=== PATIENT | female | born 1955 | race African-American/Black ===

== ENCOUNTER 2018-06-11 13:09 | Inpatient (IN) | payer MEDICAID, OTHER ==
[~2018-06-11] VITALS: Ht 165.1 cm; Wt 108.0 kg
[2018-06-11] MEDS ORDERED: ENALAPRIL 2.5MG/2ML VIAL 2ML IV ONE (15:15)
[2018-06-11 15:43] LABS: BASOPHILS % 1.1 % (0.0-2.0); EOSINOPHILS % 0.6 % (0.0-5.0); HEMATOCRIT. 41.3 % (36.0-48.0); HEMOGLOBIN. 13.9 g/dL (12.0-16.0); LYMPHOCYTES % 18.9 % (20.0-50.0); MEAN CORPUSCULAR HEMOGLOBIN 29.4 pg (28.0-32.0); MEAN CORPUSCULAR VOLUME 87.2 fL (81.0-99.0); MEAN PLATELET VOLUME 9.3 fl (7.4-10.4); MONOCYTES % 4.5 % (2.0-8.0); NEUTROPHILS % 74.9 % (40.0-76.0); PLATELET 272 x1000/uL (130-400); RED BLOOD CELL COUNT 4.74 mill/uL (4.2-5.4); RED CELL DISTRIBUTION WIDTH 13.5 % (11.6-14.6)
[2018-06-11 15:48] LABS: CHLORIDE 108 mEq/L (98-107)
[2018-06-11 15:50] LABS: INR 1.1; PARTIAL THROMBOPLASTIN TIME 27.5 sec (23.4-31.0); PROTHROMBIN TIME 10.6 sec (9.1-11.1)
[2018-06-11] MEDS ORDERED: MECLIZINE 25MG TABLET PO ONE (16:15)
[2018-06-11] MEDS ORDERED: IPRATROPIUM/ALBUTEROL 0.5-3(2.5)MG/3ML NEB INH PRN (18:30)
[2018-06-11] MEDS ORDERED: HYDROCODONE/ACETAMINOPHEN 10/325MG TABLET PO PRN (18:30)
[2018-06-11] MEDS ORDERED: NA PHOS,M-B/NA PHOS,DI-BA ENEMA 118ML PR PRN (18:30)
[2018-06-11] MEDS ORDERED: LORAZEPAM 2MG/ML CPJ IV PRN (18:30)
[2018-06-11] MEDS ORDERED: DIPHENHYDRAMINE 50MG/ML VIAL IV PRN (18:30)
[2018-06-11] MEDS ORDERED: DOCUSATE SODIUM 100MG CAPSULE PO PRN (18:30)
[2018-06-11] MEDS ORDERED: MAGNESIUM/ALUMINUM HYDROXIDE/SIMETHICONE 30ML UDC PO PRN (18:30)
[2018-06-11] MEDS ORDERED: HYDRALAZINE 20MG/ML VIAL IV PRN (18:30)
[2018-06-11] MEDS ORDERED: ACETAMINOPHEN 325MG TABLET PO PRN (18:30)
[2018-06-11] MEDS ORDERED: CLONIDINE 0.1MG TABLET PO PRN (18:30)
[2018-06-11] MEDS ORDERED: ONDANSETRON HCL 4MG/2ML INJ IV PRN (18:30)
[2018-06-11 21:45] VITALS: BP 146/71
[2018-06-11 22:03] VITALS: BP 146/71
[2018-06-11] MEDS ORDERED: BECL8.7H NS (22:40)
[2018-06-11] MEDS ORDERED: METO-385 PO (22:40)
[2018-06-11] MEDS: HYDROMORPHONE HCL/PF 2MG/ML CPJ IV PRN (22:52)
[2018-06-11] MEDS: SODIUM CHLORIDE 0.9% INJ 3ML FLUSH IVF SCH (22:52)
[2018-06-11] MEDS: ENOXAPARIN 30MG/0.3ML SYR SUBCUT SCH (22:53)
[2018-06-11] MEDS: GUAIFENESIN 200MG/10ML SUGAR FREE UDC PO PRN (23:04)
[2018-06-12] VITALS: BP_SYST 144; BP_SYST 151; BP_SYST 163; BP_DIAS 75; BP_DIAS 82; BP_DIAS 84
[2018-06-12 00:36] LABS: CREATINE KINASE 64 IU/L (26-192)
[2018-06-12 00:37] LABS: CREATINE KINASE MB FRACTION 1.1 ng/mL (0.5-3.6)
[2018-06-12 04:00] VITALS: BP 151/84
[2018-06-12] MEDS: HYDROMORPHONE HCL/PF 2MG/ML CPJ IV PRN ×3 (04:04→19:30)
[2018-06-12 04:32] LABS: METHADONE URINE SCREEN NEGATIVE (NEGATIVE)
[2018-06-12 04:33] LABS: *AMPHETAMINES SCREEN URINE NEGATIVE (NEGATIVE); *BARBITURATES SCREEN URINE NEGATIVE (NEGATIVE); *BENZODIAZEPINES SCREEN URINE NEGATIVE (NEGATIVE); *COCAINE SCREEN URINE NEGATIVE (NEGATIVE); CANNABINOID URINE SCREEN PRESUMTIVE POSITIVE (NEGATIVE); OPIATES URINE SCREEN PRESUMTIVE POSITIVE (NEGATIVE); PHENCYCLIDINE URINE SCREEN NEGATIVE (NEGATIVE)
[2018-06-12] MEDS: SODIUM CHLORIDE 0.9% INJ 3ML FLUSH IVF SCH ×3 (07:06→20:36)
[2018-06-12 08:00] VITALS: BP 147/76
[2018-06-12] MEDS: ASPIRIN 81MG EC TABLET PO SCH (09:40)
[2018-06-12] MEDS: ENOXAPARIN 30MG/0.3ML SYR SUBCUT SCH (09:40)
[2018-06-12] MEDS: GUAIFENESIN 200MG/10ML SUGAR FREE UDC PO PRN ×2 (09:41→19:29)
[2018-06-12 09:46] LABS: BASOPHILS % 1.2 % (0.0-2.0); EOSINOPHILS % 1.7 % (0.0-5.0); HEMATOCRIT. 38.5 % (36.0-48.0); HEMOGLOBIN. 12.8 g/dL (12.0-16.0); MEAN CORPUSCULAR HEMOGLOBIN 28.9 pg (28.0-32.0); MEAN PLATELET VOLUME 9.4 fl (7.4-10.4); MONOCYTES % 6.6 % (2.0-8.0); NEUTROPHILS % 58.5 % (40.0-76.0); PLATELET 244 x1000/uL (130-400); RED BLOOD CELL COUNT 4.42 mill/uL (4.2-5.4); RED CELL DISTRIBUTION WIDTH 13.8 % (11.6-14.6)
[2018-06-12 10:03] LABS: CHLORIDE 108 mEq/L (98-107)
[2018-06-12 10:16] LABS: CREATINE KINASE 64 IU/L (26-192); LDL CHOLESTEROL 69 mg/dL (5-100)
[2018-06-12 10:18] LABS: HDL CHOLESTEROL 40 mg/dL (40-59)
[2018-06-12 10:21] LABS: CREATINE KINASE MB FRACTION < 1.0 ng/mL (0.5-3.6)
[2018-06-12 12:00] VITALS: BP 186/82
[2018-06-12] MEDS: AMLODIPINE 5MG TABLET PO SCH ×2 (14:07→20:35)
[2018-06-12] MEDS: LOSARTAN POTASSIUM 25 MG TABLET PO SCH ×2 (14:07→20:35)
[2018-06-12 16:00] VITALS: BP 151/73
[2018-06-12 20:00] VITALS: BP 144/87
[2018-06-12] MEDS: METOPROLOL TARTRATE 25MG TABLET PO SCH (20:35)
[2018-06-13] VITALS: BP 144/82
[2018-06-13] MEDS: ENOXAPARIN 30MG/0.3ML SYR SUBCUT SCH ×2 (00:03→09:42)
[2018-06-13] MEDS: GUAIFENESIN 200MG/10ML SUGAR FREE UDC PO PRN (01:06)
[2018-06-13 04:00] VITALS: BP 161/80
[2018-06-13] MEDS: HYDROMORPHONE HCL/PF 2MG/ML CPJ IV PRN (04:30)
[2018-06-13] MEDS: SODIUM CHLORIDE 0.9% INJ 3ML FLUSH IVF SCH (06:52)
[2018-06-13 06:59] LABS: BASOPHILS % 1.2 % (0.0-2.0); EOSINOPHILS % 2.8 % (0.0-5.0); HEMOGLOBIN. 13.1 g/dL (12.0-16.0); LYMPHOCYTES % 35.8 % (20.0-50.0); MEAN CORPUSCULAR HEMOGLOBIN 29.2 pg (28.0-32.0); MEAN CORPUSCULAR VOLUME 87.1 fL (81.0-99.0); MEAN PLATELET VOLUME 8.7 fl (7.4-10.4); MONOCYTES % 7.3 % (2.0-8.0); NEUTROPHILS % 52.9 % (40.0-76.0); PLATELET 238 x1000/uL (130-400); RED BLOOD CELL COUNT 4.48 mill/uL (4.2-5.4); RED CELL DISTRIBUTION WIDTH 13.9 % (11.6-14.6)
[2018-06-13 07:21] LABS: CHLORIDE 108 mEq/L (98-107)
[2018-06-13 07:28] LABS: CREATINE KINASE MB FRACTION < 1.0 ng/mL (0.5-3.6)
[2018-06-13 07:30] LABS: LDL CHOLESTEROL 68 mg/dL (5-100)
[2018-06-13 07:31] LABS: HDL CHOLESTEROL 41 mg/dL (40-59)
[2018-06-13 07:32] LABS: CREATINE KINASE 63 IU/L (26-192)
[2018-06-13 08:00] VITALS: BP 136/85
[2018-06-13] MEDS: METOPROLOL TARTRATE 25MG TABLET PO SCH ×2 (09:00→13:02)
[2018-06-13] MEDS: AMLODIPINE 5MG TABLET PO SCH (09:00)
[2018-06-13] MEDS: LOSARTAN POTASSIUM 25 MG TABLET PO SCH (09:00)
[2018-06-13] MEDS: ASPIRIN 81MG EC TABLET PO SCH (09:42)
[2018-06-13 12:00] VITALS: BP 138/70
== END 2018-06-13 14:10 | disposition home or self-care (01) | DRG 199 ==
LOC: ER 13:09 → 5WST 17:15 → EDBEDREQ 17:24 → ENRESERV 20:36
PROVIDERS: ADMIT Internal Medicine; ATTEND Internal Medicine
DX: I16.0 Hypertensive urgency (principal); E46 Unspecified protein-calorie malnutrition; F12.90 Cannabis use, unspecified, uncomplicated; I10 Essential (primary) hypertension; Z86.61 Personal history of infections of the central nervous system; Z79.899 Other long term (current) drug therapy; Z86.73 Personal history of transient ischemic attack (TIA), and cerebral infarction without residual deficits; Z87.891 Personal history of nicotine dependence; Z68.39 Body mass index [BMI] 39.0-39.9, adult; Z88.0 Allergy status to penicillin
CPT/HCPCS: 36415; 71045; 73030; 80061; 80305; 82550; 82553; 83735; 83880; 84439; 84443; 84484; 85379; 93005; 93306; 96374; 96375; 99285; J0360; J1170; J1650; J2060; J3490; J8597